=== PATIENT | male | born 1950 | race Asian ===

== ENCOUNTER 2021-08-08 04:25 | Day surgery (SDC) | payer OTHER, MEDICARE ==
[2021-08-07 13:04] VITALS: BMI 28.1
[2021-08-08] MEDS ORDERED: LIDOCAINE HCL 1%, 10 MG/ML (20ML VIAL) ONE (08:48)
[2021-08-08] MEDS ORDERED: PROMETHAZINE HCL 25 MG/1 ML VIAL IVPUSH PRN (09:59)
[2021-08-08] MEDS ORDERED: ONDANSETRON 4 MG/2 ML VIAL IVPUSH PRN (09:59)
[2021-08-08] MEDS ORDERED: LACTATED RINGERS SOLUTION 1,000 ML IV SCH (10:00)
[2021-08-08] MEDS ORDERED: MIDAZOLAM HCL 2 MG/2 ML SINGLE DOSE VIAL ONE (10:16)
[2021-08-08] MEDS ORDERED: PROPOFOL 20 ML ONE (10:16)
[2021-08-08] MEDS ORDERED: SODIUM CHLORIDE 0.9% P/F 10 ML VIAL IJ ONE (10:17)
[2021-08-08] MEDS ORDERED: LIDOCAINE HCL/PF 2% SDV 5ML VIAL ONE (10:17)
[2021-08-08] MEDS ORDERED: ceFAZolin SODIUM 1 GM VIAL ONE (10:17)
[2021-08-08] MEDS ORDERED: ceFAZolin SODIUM 1 GM VIAL IVPB ONE (10:27)
[2021-08-08] MEDS ORDERED: LIDOCAINE HCL 1%, 10 MG/ML (50 mL VIAL) INF ONE (10:38)
[2021-08-08] MEDS ORDERED: HEPARIN NA (PORCINE) 5,000 UNITS/ML 1ML VIAL ONE (10:42)
[2021-08-08] MEDS ORDERED: oxyCODONE HCL 5 MG TABLET PO PRN (11:34)
[2021-08-08 13:23] VITALS: BP 150/75; PULSE 64; TEMP 98.8
== END 2021-08-08 13:15 | disposition home or self-care (01) ==
LOC: JASU-SURG 04:25
PROVIDERS: ATTEND Surgery Vascular Surgery
PROC: B54CZZ3 Ultrasonography of Left Lower Extremity Veins, Intravascular (ICD-10-PCS; 2021-08-08)
PROC: 067D3DZ Dilation of Left Common Iliac Vein with Intraluminal Device, Percutaneous Approach (ICD-10-PCS; 2021-08-08)
PROC: 067D3DZ Dilation of Left Common Iliac Vein with Intraluminal Device, Percutaneous Approach (ICD-10-PCS; principal; 2021-08-08 10:30)
DX: I82.522 Chronic embolism and thrombosis of left iliac vein (principal)
CPT/HCPCS: 36011; 37238; 37252; C1877; 76000-TC-FY; 94760; J1644